=== PATIENT | female | born 1995 | race Hispanic/Latino ===

== ENCOUNTER 2020-04-28 08:16 | Inpatient (IN) | payer OTHER ==
[~2020-04-28] VITALS: Ht 162.6 cm; Wt 98.9 kg
[2020-04-28] MEDS ORDERED: METHYLPREDNISOLONE SOD SUCC 40MG/ML 1ML IVP SCH (11:45)
[2020-04-28] MEDS ORDERED: ACETAMINOPHEN 325 MG TAB PO PRN ×2 (11:45)
[2020-04-28] MEDS ORDERED: ONDANSETRON HCL 4 MG/2 ML VIAL IVP PRN (11:45)
[2020-04-28] MEDS: AZITHROMYCIN 500MG+NS 250ML 250 ML IV SCH (11:45)
[2020-04-28] MEDS ORDERED: GLUCAGON 1MG KIT 1 MG ML IM PRN (11:45)
[2020-04-28] MEDS ORDERED: DEXTROSE 50%-WATER 50 ML DISP.SYRIN IV PRN (11:45)
[2020-04-28] MEDS: CEFTRIAXONE SODIUM 1 GM IVP SCH (11:45)
[2020-04-28] MEDS ORDERED: CEFTRIAXONE SODIUM 1 GM ONE (11:51)
[2020-04-28] MEDS ORDERED: AZITHROMYCIN 250 MG TABLET PO ONE (11:51)
[2020-04-28] MEDS ORDERED: IOHEXOL-350 75 ML VIAL IV ONE (11:59)
[2020-04-28] MEDS ORDERED: INSULIN HUMULIN R 100 UNIT/ML 3ML SQ SCH (16:30)
[2020-04-28] MEDS ORDERED: METHYLPREDNISOLONE SOD SUCC 40MG/ML 1ML ONE (21:20)
[2020-04-29] MEDS ORDERED: METHYLPREDNISOLONE SOD SUCC 40MG/ML 1ML ONE ×3 (05:29→20:42)
[2020-04-29] MEDS ORDERED: AZITHROMYCIN 500MG+NS 250ML 250 ML IV ONE (08:16)
[2020-04-29] MEDS ORDERED: ENOXAPARIN SODIUM 60 MG/0.6 ML SQ ONE (08:16)
[2020-04-29] MEDS ORDERED: CEFTRIAXONE SODIUM 1 GM ONE (08:17)
[2020-04-29] MEDS ORDERED: SODIUM CHLORIDE 0.9% 100 ML IV ONE (08:17)
[2020-04-29] MEDS: ENOXAPARIN SODIUM 40 MG/0.4 ML SYRINGE SQ SCH (09:00)
[2020-04-29] MEDS ORDERED: METFORMIN HCL 500 MG TABLET PO SCH (18:15)
--- NOTE | 2020-04-29 18:24 | NUR ---
INITIAL SW spoke to patient's father, Jer Marie, [phone]. Patient lives with parents. No home services or DME. Patient is able to complete ADL's independently and drives. She has No PCP. When she is sick, patient goes to [facility] to see MD. Pharmacy is [facility] in [place]. DCP is home. Patient has no insurance or benefits. She is a [place] citizen. SW educated father on $4 [facility] and [facility] $5 medication program. Patient is being assisted by [employer] for financial matters. Patient's correct address is: [address] [place] [id number] Addendum: 04/29/20 at 1827 by SHANEKA DE LA ROSA Amended: Links added.
[2020-04-30] MEDS ORDERED: METHYLPREDNISOLONE SOD SUCC 125MG/2ML VIAL ONE (05:07)
[2020-04-30] MEDS ORDERED: INSULIN HUMULIN R 100 UNIT/ML 3ML ONE ×3 (08:55→16:49)
[2020-04-30] MEDS ORDERED: ENOXAPARIN SODIUM 60 MG/0.6 ML SQ ONE (09:41)
[2020-04-30] MEDS ORDERED: SODIUM CHLORIDE 0.9% 100 ML IV ONE (09:41)
[2020-04-30] MEDS ORDERED: CEFTRIAXONE SODIUM 1 GM ONE (09:41)
[2020-04-30] MEDS ORDERED: AZITHROMYCIN 500MG+NS 250ML 250 ML IV ONE (11:46)
[2020-04-30] MEDS ORDERED: METHYLPREDNISOLONE SOD SUCC 40MG/ML 1ML ONE ×2 (11:46→20:17)
[2020-04-30] MEDS ORDERED: METFORMIN HCL 500 MG TABLET ONE (16:49)
[2020-05-01] MEDS ORDERED: METHYLPREDNISOLONE SOD SUCC 40MG/ML 1ML ONE (05:47)
[2020-05-01] MEDS: ENOXAPARIN SODIUM 40 MG/0.4 ML SYRINGE SQ SCH (09:00)
[2020-05-01] MEDS ORDERED: ENOXAPARIN SODIUM 60 MG/0.6 ML SQ ONE (09:06)
[2020-05-01] MEDS ORDERED: METFORMIN HCL 500 MG TABLET ONE ×2 (09:06→17:55)
[2020-05-01] MEDS ORDERED: CEFTRIAXONE SODIUM 1 GM ONE (09:06)
[2020-05-01] MEDS ORDERED: INSULIN HUMULIN R 100 UNIT/ML 3ML ONE ×3 (09:07→17:55)
[2020-05-01] MEDS: AZITHROMYCIN 500MG+NS 250ML 250 ML IV SCH (11:45)
[2020-05-01] MEDS: CEFTRIAXONE SODIUM 1 GM IVP SCH (11:45)
[2020-05-01] MEDS ORDERED: AZITHROMYCIN 500MG+NS 250ML 250 ML IV ONE (13:13)
[2020-05-01] MEDS ORDERED: INSULIN GLARGINE 100 UNITS/ML 10 ML VIAL SQ SCH (21:00)
[2020-05-02] MEDS: METHYLPREDNISOLONE SOD SUCC 40MG/ML 1ML IVP SCH ×4 (01:15→23:44)
[2020-05-02] MEDS ORDERED: METHYLPREDNISOLONE SOD SUCC 40MG/ML 1ML ONE (01:33)
[2020-05-02] MEDS ORDERED: INSULIN HUMULIN R 100 UNIT/ML 3ML ONE (01:34)
[2020-05-02 04:50] VITALS: BP 114/64; PULSE 54; RESP 18; TEMP 98.3
[2020-05-02] MEDS: INSULIN HUMULIN R 100 UNIT/ML 3ML SQ SCH ×4 (06:05→21:00)
[2020-05-02] MEDS: METFORMIN HCL 500 MG TABLET PO SCH ×2 (06:29→16:30)
[2020-05-02] MEDS: CEFTRIAXONE SODIUM 1 GM IVP SCH (07:57)
[2020-05-02] MEDS: ENOXAPARIN SODIUM 40 MG/0.4 ML SYRINGE SQ SCH (07:58)
[2020-05-02] MEDS: AZITHROMYCIN 500MG+NS 250ML 250 ML IV SCH (07:59)
[2020-05-02 08:00] VITALS: BP 109/74; PULSE 57; RESP 18; TEMP 98.1
--- NOTE | 2020-05-02 08:30 | NUR ---
ASSESSMENT PT IS AAOX3 DENIES CP DENIES NV DENIES SOB WHILE AT REST, BREATHING PATTERN IS EVEN AND UNLABORED, ON O2 VIA NC. AM MEDS GIVEN, CALL LIGHT WITHIN REACH.
[2020-05-02] MEDS ORDERED: INSULIN HUMULIN R 100 UNIT/ML 3ML SQ SCH (11:30)
[2020-05-02 12:00] VITALS: BP 126/93; PULSE 57; RESP 18; TEMP 98.3
--- NOTE | 2020-05-02 13:00 | NUR ---
DR Miller AND ALFREDA YOST ROUNDED
[2020-05-02 15:30] VITALS: BP 134/82; PULSE 52; RESP 18; TEMP 97.8
[2020-05-02 19:58] VITALS: BP 123/66; PULSE 52; RESP 18; TEMP 97.7
[2020-05-02] MEDS: INSULIN GLARGINE 100 UNITS/ML 10 ML VIAL SQ SCH (22:35)
[2020-05-03 00:02] VITALS: BP 128/81; PULSE 67; RESP 18; TEMP 98.1
[2020-05-03 04:34] VITALS: BP 121/84; PULSE 53; RESP 18; TEMP 97.9
[2020-05-03] MEDS: INSULIN HUMULIN R 100 UNIT/ML 3ML SQ SCH ×3 (06:37→17:55)
[2020-05-03 07:30] VITALS: BP 114/72; PULSE 67; RESP 18; TEMP 98.5
[2020-05-03] MEDS: INSULIN GLARGINE 100 UNITS/ML 10 ML VIAL SQ SCH (08:57)
[2020-05-03] MEDS: METFORMIN HCL 500 MG TABLET PO SCH ×2 (08:58→17:40)
[2020-05-03] MEDS: ENOXAPARIN SODIUM 40 MG/0.4 ML SYRINGE SQ SCH (08:58)
[2020-05-03] MEDS: METHYLPREDNISOLONE SOD SUCC 40MG/ML 1ML IVP SCH ×2 (08:58→17:40)
[2020-05-03 11:30] VITALS: BP 123/73; PULSE 56; RESP 18; TEMP 98.2
[2020-05-03] MEDS: CEFTRIAXONE SODIUM 1 GM IVP SCH (12:25)
[2020-05-03] MEDS: AZITHROMYCIN 500MG+NS 250ML 250 ML IV SCH (12:25)
--- NOTE | 2020-05-03 12:58 | NUR ---
NUTRITION EDUCATION Diabetes Nutrition Education handouts placed in Pt chart d/t Isolation Protocol. Pt on Isolation unit. Airborne precaution. Attempt to call Pt - No Answer. Please contact as feasible. Addendum: 05/03/20 at 1300 [address]ISHNU PEÑ[address]OZA RD RD Amended: Links added.
--- NOTE | 2020-05-03 16:00 | NUR ---
RD UPDATE RD was able to provide Diabetes nutrition education via phone with RN assistance. RD reviewed reference materials and discussed nutrition recommendations. Pt with no questions at this time. RD to continue to monitor.
--- NOTE | 2020-05-03 18:40 | NUR ---
HL REMOVED, CATHETER INTACT. DISCHARGE INSTRUCTIONS GIVEN, INCLUDING CO-VID PRECAUTIONS, VERBALIZED UNDERSTANDING.
--- NOTE | 2020-05-03 18:45 | NUR ---
DISCHARGED HOME VIA W/C WITH BELONGINGS ACCOMPANIED BY VIVIAN WORTHINGTON.
== END 2020-05-03 18:50 | disposition home or self-care (01) | DRG 177 ==
LOC: EDH 08:16 → EDHIP 08:17 → 2AH 05-02 04:30
PROVIDERS: ADMIT Hospitalist; ATTEND Hospitalist
DX: U07.1 COVID-19 (principal); J12.89 Other viral pneumonia; J96.01 Acute respiratory failure with hypoxia; Z68.41 Body mass index [BMI] 40.0-44.9, adult; E11.65 Type 2 diabetes mellitus with hyperglycemia; E66.01 Morbid (severe) obesity due to excess calories; Z79.4 Long term (current) use of insulin